=== PATIENT | male | born 1995 | race Caucasian/White ===

== ENCOUNTER 2016-06-23 20:10 | Emergency (ER) | payer BC ==
[2016-06-23 20:18] VITALS: BP 142/88
--- NOTE | 2016-06-23 21:03 | UC ---
Respiratory Complaint HPI - HPI Summary HPI Summary: 21 year old male complaining of post-nasal drip, sore throat, and muffled sound in the right ear. Symptoms began Sunday with chills, body aches, and post- nasal drip. Symptoms resolved Sunday. On , patient woke up with post -nasal drip and a "severe" sore throat. Denies current fever like symptoms, GI symptoms, or rash. Denies exposure to recent illness, would like a rapid strep test done today. During the PE, patient stated that on Sunday he developed blurred vision in the left eye after "feeling like I had an eye lash in my eye," which has been gradually improving. Denies trauma to the eye, loss of visual field, diplopia, itchiness in the eye/foreign body sensation, or pain. - History of Current Complaint Chief Complaint: UCRespiratory Stated Complaint: ST,COUGH,DIZZY Time Seen by Provider: 06/23/16 20:35 Hx Obtained From: Patient Onset/Duration: Gradual Onset Timing: Constant Severity Initially: Mild Severity Currently: Mild Character: Cough: Nonproductive - "In my upper chest" Aggravating Factors: Deep Breaths Alleviating Factors: Upright Position Associated Signs And Symptoms: Positive: Fever, Chills, URI, Nasal Congestion - Risk Factors Pulmonary Embolism Risk Factors: Negative Cardiac Risk Factors: Negative Pseudomonas Risk Factors: Negative Tuberculosis Risk Factors: Negative - Allergies/Home Medications Allergies/Adverse Reactions: Allergies Allergy/AdvReac Type Severity Reaction Status Date / Time No Known Allergies Allergy Verified 06/23/16 20:18 Home Medications: Home Medications Ibuprofen TAB* [Advil TAB*] 400 mg PO PRN 06/23/16 [History] Melatonin 10 mg PO 06/23/16 [History] PMH/Surg Hx/FS Hx/Imm Hx Previously Healthy: Yes Endocrine History Of: Denies: Diabetes, Thyroid Disease, Hyperthyroidism, Hypothyroidism, Dyslipidemia Cardiovascular History Of: Denies: Cardiac Disorders, Hypertension, Pacemaker/ICD, Myocardial Infarction , Congestive Heart Failure, Atrial Fibrillation, Deep Vein Thrombosis, Bleeding Disorders Respiratory History Of: Reports: Asthma - Childhood GI/ History Of: Denies: Gastroesophageal Reflux, Ulcer, Gastrointestinal Bleed, Gall Bladder Disease, Kidney Stones, Diverticulitis, Renal Disease, Urosepsis Neurological History Of: Denies: TIA, CVA, Dementia, Seizures, Migraine Psychological History Of: Denies: Anxiety, Depression, Bipolar Disorder, Schizophrenia, Post Traumatic Stress Disorder - Surgical History Surgical History: None - Family History Known Family History: Positive: None - Social History Occupation: Student Alcohol Use: Occasionally Substance Use Type: None Smoking Status (MU): Never Smoked Tobacco Have You Smoked in the Last Year: No Review of Systems Constitutional: Fever - Resolved on Sunday, Chills, Fatigue - Resolved on Sunday Skin: Negative Eyes: Blurred Vision - Left eye which has since been improving. ENT: Sore Throat, Nasal Discharge, Other - Right ear "muffled sound" Respiratory: Cough - Non productive Cardiovascular: Negative Gastrointestinal: Negative Genitourinary: Negative Motor: Negative Neurovascular: Negative Musculoskeletal: Negative Neurological: Negative Psychological: Negative All Other Systems Reviewed And Are Negative: Yes Physical Exam Triage Information Reviewed: Yes Appearance: Well-Appearing, No Pain Distress, Well-Nourished Vital Signs: Initial Vital Signs Temp 98.5 F 06/23/16 20:13 Pulse 91 06/23/16 20:13 Resp 16 06/23/16 20:13 BP 142/88 06/23/16 20:13 Pulse Ox 100 06/23/16 20:13 Vital Signs Reviewed: Yes Eye Exam: Normal Eyes: Positive: Other: - Red light reflex present bilaterally on fundoscopic exam ENT: Positive: Hearing grossly normal, Nasal congestion, TMs normal, Tonsillar swelling Dental Exam: Normal Neck: Positive: Supple, Nontender, No Lymphadenopathy Respiratory Exam: Normal Respiratory: Positive: Chest non-tender, Lungs clear, Normal breath sounds, Decreased breath sounds - Bilateral posterior lower lobes, resolved with deep breathing Cardiovascular Exam: Normal Cardiovascular: Positive: RRR, No Murmur, Pulses Normal Abdominal Exam: Normal Abdomen Description: Positive: Nontender, No Organomegaly, Soft Bowel Sounds: Positive: Present Musculoskeletal Exam: Normal Musculoskeletal: Positive: Strength Intact Neurological Exam: Normal Neurological: Positive: Alert, Muscle Tone Normal Psychological Exam: Normal Skin Exam: Normal - Additional Comments Visual acuity conducted in the room. 20/20 in left eye; 20/20 in the right eye; 20/20 bilaterally UC Diagnostic Evaluation - Laboratory O2 Sat by Pulse Oximetry: 100 Respiratory Course/Dx - Differential Dx/Diagnosis Provider Diagnoses: Upper Respiratory Infection Discharge - Discharge Plan Condition: Stable Disposition: INTERMEDIATE CARE FACILITY Prescriptions: Albuterol HFA INHALER* [Ventolin HFA Inhaler*] 1 - 2 puff INH Q6H PRN #1 mdi PRN Reason: Shortness Of Breath Patient Education Materials: Upper Respiratory Infection (ED) Referrals: Bear Gonzalez MD [Medical Doctor] - Additional Instructions: Please seek medical care if you have fever, chest pain, colored sputum, blood in the sputum, wheezing or shortness of breath. As discussed if you have sudden loss of vision, eye pain, or diplopia go immediately to the Emergency Room
== END 2016-06-23 21:24 ==
LOC: UCEAST 20:10
DX: J06.9 Acute upper respiratory infection, unspecified (principal)
CPT/HCPCS: 87651; 99212; G0463